=== PATIENT | male | born 1950 | race Caucasian/White ===

== ENCOUNTER 2019-03-29 08:16 | Outpatient (CLI) | payer MEDICARE ==
[2019-03-29 09:30] LABS: BASOPHILS # (AUTO) 0.02 x10^3/uL (0-0.1); BASOPHILS % (AUTO) 0 % (0-1); EOSINOPHILS # (AUTO) 0.31 x10^3/uL (0-0.4); EOSINOPHILS % (AUTO) 5 % (1-7); LYMPHOCYTES # (AUTO) 2.61 x10^3/uL (1-3.4); LYMPHOCYTES % (AUTO) 41 % (22-44); MD NO; MEAN CORPUSCULAR HEMOGLOBIN 32.9 pg (27.5-34.5); MEAN CORPUSCULAR HGB CONC 33.3 g/dL (33.2-36.2); MEAN CORPUSCULAR VOLUME 98.8 fL (81-97); MEAN PLATELET VOLUME 9.4 fL (7.4-10.4); MONOCYTES # (AUTO) 0.66 x10^3/uL (0.2-0.8); MONOCYTES % (AUTO) 10 % (2-9); NEUTROPHILS # (AUTO) 2.84 x10^3/uL (1.8-6.8); NEUTROPHILS % (AUTO) 44 % (42-75); PLATELET COUNT 166 x10^3/uL (130-400); RED BLOOD COUNT 4.41 x10^6/uL (4.38-5.82); RED CELL DISTRIBUTION WIDTH 13.9 % (9.4-14.8)
[2019-03-29 09:37] LABS: INTERNATIONAL NORMALIZED RATIO 1.07 (0.93-1.1); PROTHROMBIN TIME 11.2 Seconds (9.6-11.5)
[2019-03-29 09:37] LABS: MICROSCOPIC NOT IND
[2019-03-29 09:52] LABS: ANION GAP 4 mmol/L (5-15); CALCIUM 9.4 mg/dL (8.5-10.1); CHLORIDE 109 mmol/L (98-107); CREATININE 1.05 mg/dL (0.7-1.3)
[2019-03-29 10:11] LABS: HEMOGLOBIN A1C 5.6 % (4.2-6.3)
[2019-03-30] MEDS ORDERED: ACET1CAP PO (08:27)
[2019-03-30] MEDS ORDERED: UBID100C24 PO (08:27)
[2019-03-30] MEDS ORDERED: GLUC1CAP48 PO (08:27)
[2019-03-30] MEDS ORDERED: MULT1TAB60 PO (08:27)
[2019-03-30] MEDS ORDERED: OMEG-89 PO (08:27)
[2019-03-30] MEDS ORDERED: TURM500C4 PO (08:27)
[2019-03-30] MEDS ORDERED: ATOR20TA37 PO (08:27)
== END 2019-03-29 23:59 | disposition home or self-care (01) ==
LOC: STAR 08:16
PROVIDERS: ATTEND Student in an Organized Health Care Education/Training Program
DX: Z01.818 Encounter for other preprocedural examination (principal); N40.0 Benign prostatic hyperplasia without lower urinary tract symptoms; N21.0 Calculus in bladder; R79.89 Other specified abnormal findings of blood chemistry; R79.1 Abnormal coagulation profile
CPT/HCPCS: 36415; 71046; 80048; 81003; 83036; 85025; 85610; 85730; 87086; 93005

== ENCOUNTER 2019-04-15 05:35 | Inpatient (IN) | payer MEDICARE ==
[~2019-04-15] VITALS: Ht 185.4 cm; Wt 82.7 kg
[~2019-04-15 05:35] MED LIST: ACET1CAP PO; ATOR20TA37 PO; GLUC1CAP48 PO; MULT1TAB60 PO; OMEG-89 PO; TURM500C4 PO; UBID100C24 PO
[2019-04-15] MEDS ORDERED: LACTATED RINGERS 1,000 ML IV SCH (06:17)
[2019-04-15 06:20] VITALS: BP 112/77
[2019-04-15] MEDS ORDERED: THROMBIN 5,000 UNIT VIAL TP ONE (07:12)
[2019-04-15] MEDS ORDERED: BUPIVACAINE/EPI 0.5% 1:200K ONE (07:12)
[2019-04-15] MEDS ORDERED: BUPIVACAINE/PF 0.25% ONE (07:12)
[2019-04-15] MEDS ORDERED: EPINEPHRINE 1 MG/ML, 1ML ONE (07:12)
[2019-04-15] MEDS ORDERED: FENTANYL PF 250 MCG/5ML ONE (07:36)
[2019-04-15] MEDS ORDERED: MIDAZOLAM 1 MG/ML, 2ML ONE (07:36)
[2019-04-15] MEDS ORDERED: EPHEDRINE 50 MG/ML, 1ML ONE (07:43)
[2019-04-15] MEDS ORDERED: PHENYLEPHRINE 10 MG/ML ONE (07:43)
[2019-04-15] MEDS ORDERED: hydrALAzine 20 MG/ML, 1ML IV PRN (09:00)
[2019-04-15] MEDS ORDERED: ACETAMINOPHEN 325 MG TABLET PO PRN (09:00)
[2019-04-15] MEDS ORDERED: LABETALOL 5MG/ML, 20ML IV PRN (09:00)
[2019-04-15] MEDS ORDERED: OXYcodone 5 MG/5 ML ORAL.SOL UDC PO PRN ×2 (09:00→12:00)
[2019-04-15] MEDS ORDERED: KETOROLAC 30 MG/1 ML IV PRN (09:00)
[2019-04-15] MEDS ORDERED: ALBUTEROL SULFATE 2.5 MG/3 ML NPPB PRN (09:00)
[2019-04-15] MEDS ORDERED: DIAZEPAM 5 MG/ML, 2ML IVPush PRN (09:00)
[2019-04-15] MEDS ORDERED: MEPERIDINE/PF 25MG/0.5ML IVPush PRN (09:00)
[2019-04-15] MEDS ORDERED: PROMETHAZINE 25 MG/ML, 1ML IV PRN (09:00)
[2019-04-15] MEDS ORDERED: OPIUM/BELLADONNA SUPP.RECT 16.2-60 MG ONE (10:30)
[2019-04-15] MEDS ORDERED: NEOSTIGMINE 1 MG/ML, 10ML ONE (10:47)
[2019-04-15] MEDS ORDERED: GLYCOPYRROLATE 0.2MG/1ML, 5ML ONE (10:47)
[2019-04-15] MEDS ORDERED: SUCCINYLCHOLINE 20 MG/ML, 10ML ONE (10:47)
[2019-04-15] MEDS ORDERED: PROPOFOL 10 MG/ML, 20ML ONE (10:47)
[2019-04-15] MEDS ORDERED: CEFAZOLIN 1,000 MG ONE (10:47)
[2019-04-15] MEDS ORDERED: DEXAMETHASONE 4 MG/ML, 1ML ONE (10:47)
[2019-04-15] MEDS ORDERED: ROCURONIUM 10MG/ML,5ML ONE (10:47)
[2019-04-15] MEDS ORDERED: ONDANSETRON 2MG/ML, 2ML ONE (10:47)
[2019-04-15] MEDS ORDERED: ONDANSETRON 2MG/ML, 2ML IV PRN (12:00)
[2019-04-15] MEDS ORDERED: HYDROmorphone 1 MG/ML, 1ML INJ IV PRN (12:00)
[2019-04-15] MEDS ORDERED: OPIUM/BELLADONNA SUPP.RECT 16.2-30 MG PR PRN (12:00)
[2019-04-15] MEDS ORDERED: FENTANYL PF 100 MCG/2ML ONE (12:03)
[2019-04-15] MEDS ORDERED: OXYcodone 5 MG/5 ML ORAL.SOL UDC ONE (12:04)
[2019-04-15] MEDS: FENTANYL PF 100 MCG/2ML IV PRN ×2 (12:08→12:26)
[2019-04-15] MEDS ORDERED: HYDROmorphone 2 MG/ML, 1ML ONE (12:13)
[2019-04-15] MEDS: HYDROmorphone 2 MG/ML, 1ML IVPush PRN ×3 (12:15→12:34)
[2019-04-15] MEDS ORDERED: MEPERIDINE/PF 25MG/ML,1ML ONE (12:40)
[2019-04-15 14:00] VITALS: BP 134/83
[2019-04-15] MEDS: ACETAMINOPHEN 325 MG TABLET PO SCH ×2 (14:22→18:00)
[2019-04-15 14:46] LABS: ALBUMIN 3.8 g/dL (3.4-5.0); ANION GAP 4 mmol/L (5-15); CALCIUM 8.7 mg/dL (8.5-10.1); CHLORIDE 110 mmol/L (98-107); CREATININE 1.09 mg/dL (0.7-1.3)
[2019-04-15] MEDS: HEPARIN 5,000 UNITS/ML, 1ML SQ SCH (16:03)
[2019-04-15 19:15] VITALS: BP 86/57
[2019-04-15] MEDS ORDERED: SODIUM CHLORIDE 0.9% 1,000ML IVBOLUS ONE (20:30)
[2019-04-15 21:57] VITALS: BP 86/60
[2019-04-15 22:45] VITALS: BP 75/42
[2019-04-16] MEDS: ACETAMINOPHEN 325 MG TABLET PO SCH ×5 (01:22→23:53)
[2019-04-16] MEDS: SODIUM CHLORIDE 0.9% 1,000 ML IV SCH ×3 (01:23→19:21)
[2019-04-16 01:58] VITALS: BP 84/59
[2019-04-16] MEDS: HEPARIN 5,000 UNITS/ML, 1ML SQ SCH ×4 (06:10→21:53)
[2019-04-16 06:26] LABS: BASOPHILS % (AUTO) 0 % (0-1); EOSINOPHILS % (AUTO) 0 % (1-7); LYMPHOCYTES # (AUTO) 1.01 x10^3/uL (1-3.4); LYMPHOCYTES % (AUTO) 10 % (22-44); MD NO; MEAN CORPUSCULAR HEMOGLOBIN 32.4 pg (27.5-34.5); MEAN CORPUSCULAR HGB CONC 32.3 g/dL (33.2-36.2); MEAN CORPUSCULAR VOLUME 100.5 fL (81-97); MONOCYTES # (AUTO) 1.03 x10^3/uL (0.2-0.8); MONOCYTES % (AUTO) 11 % (2-9); NEUTROPHILS # (AUTO) 7.82 x10^3/uL (1.8-6.8); NEUTROPHILS % (AUTO) 79 % (42-75); PLATELET COUNT 153 x10^3/uL (130-400); RED BLOOD COUNT 3.09 x10^6/uL (4.38-5.82); RED CELL DISTRIBUTION WIDTH 13.5 % (9.4-14.8)
[2019-04-16 06:29] LABS: ANION GAP 8 mmol/L (5-15); CALCIUM 8.5 mg/dL (8.5-10.1); CHLORIDE 108 mmol/L (98-107); CREATININE 1.62 mg/dL (0.7-1.3)
[2019-04-16 06:42] VITALS: BP 85/48
[2019-04-16] MEDS: HYDROmorphone 2 MG/ML, 1ML IV PRN (06:45)
[2019-04-16] MEDS ORDERED: SIMETHICONE 80 MG CHEW TAB PO ONE (07:00)
[2019-04-16] MEDS ORDERED: LORazepam 2 MG/ML, 1ML IVPush PRN ×2 (07:00→08:30)
[2019-04-16] MEDS: POLYETHYLENE GLYCOL 17 GM PACKET PO SCH (08:00)
[2019-04-16] MEDS ORDERED: MIDAZOLAM 1 MG/ML, 2ML ONE (08:09)
[2019-04-16] MEDS ORDERED: FENTANYL PF 100 MCG/2ML ONE (08:09)
[2019-04-16] MEDS ORDERED: LIDOCAINE-MPF 2% ,5ML ONE (08:10)
[2019-04-16] MEDS ORDERED: SUCCINYLCHOLINE 20 MG/ML, 10ML ONE (08:10)
[2019-04-16] MEDS ORDERED: ROCURONIUM 10MG/ML,5ML ONE (08:11)
[2019-04-16] MEDS ORDERED: OXYcodone 5 MG/5 ML ORAL.SOL UDC PO PRN (08:30)
[2019-04-16] MEDS ORDERED: MEPERIDINE/PF 25MG/0.5ML IVPush PRN (08:30)
[2019-04-16] MEDS ORDERED: FENTANYL PF 100 MCG/2ML IV PRN (08:30)
[2019-04-16] MEDS ORDERED: ALBUTEROL SULFATE 2.5 MG/3 ML NPPB PRN (08:30)
[2019-04-16] MEDS ORDERED: HYDROmorphone 2 MG/ML, 1ML IVPush PRN (08:30)
[2019-04-16] MEDS ORDERED: hydrALAzine 20 MG/ML, 1ML IV PRN (08:30)
[2019-04-16] MEDS ORDERED: EPHEDRINE 50 MG/ML, 1ML IVPush PRN (08:30)
[2019-04-16] MEDS ORDERED: ONDANSETRON 2MG/ML, 2ML IV PRN (08:30)
[2019-04-16] MEDS ORDERED: BUPIVACAINE/PF 0.5% ONE (08:44)
[2019-04-16] MEDS ORDERED: NEOSTIGMINE 1 MG/ML, 10ML ONE (09:00)
[2019-04-16] MEDS ORDERED: PROPOFOL 10 MG/ML, 20ML ONE (09:00)
[2019-04-16] MEDS ORDERED: CEFAZOLIN 1,000 MG ONE (09:00)
[2019-04-16] MEDS ORDERED: GLYCOPYRROLATE 0.2MG/1ML, 5ML ONE (09:00)
[2019-04-16] MEDS ORDERED: PHENYLEPHRINE 10 MG/ML ONE (09:00)
[2019-04-16] MEDS ORDERED: POLYETHYLENE GLYCOL 17 GM PACKET PO SCH (09:00)
[2019-04-16] MEDS ORDERED: ONDANSETRON 2MG/ML, 2ML ONE (09:59)
[2019-04-16 13:05] VITALS: BP 116/79
[2019-04-16] MEDS: SIMETHICONE 80 MG CHEW TAB PO PRN ×2 (17:27→21:48)
[2019-04-16 18:39] VITALS: BP 112/65
[2019-04-17 01:38] VITALS: BP 114/66
[2019-04-17] MEDS: SODIUM CHLORIDE 0.9% 1,000 ML IV SCH ×2 (02:40→20:38)
[2019-04-17 05:27] LABS: MEAN CORPUSCULAR HEMOGLOBIN 32.6 pg (27.5-34.5); MEAN CORPUSCULAR HGB CONC 32.8 g/dL (33.2-36.2); MEAN CORPUSCULAR VOLUME 99.3 fL (81-97); MEAN PLATELET VOLUME 9.4 fL (7.4-10.4); PLATELET COUNT 111 x10^3/uL (130-400); RED BLOOD COUNT 2.21 x10^6/uL (4.38-5.82); RED CELL DISTRIBUTION WIDTH 13.6 % (9.4-14.8)
[2019-04-17 05:37] LABS: ANION GAP 3 mmol/L (5-15); CALCIUM 8.1 mg/dL (8.5-10.1); CHLORIDE 111 mmol/L (98-107); CREATININE 0.99 mg/dL (0.7-1.3)
[2019-04-17] MEDS ORDERED: FUROSEMIDE 20 MG/2 ML ONE (05:49)
[2019-04-17] MEDS: ACETAMINOPHEN 325 MG TABLET PO SCH ×4 (05:51→22:44)
[2019-04-17] MEDS ORDERED: FUROSEMIDE 20 MG/2 ML IV ONE (06:00)
[2019-04-17 06:45] LABS: BASOPHILS # (AUTO) 0.02 x10^3/uL (0-0.1); BASOPHILS % (AUTO) 0 % (0-1); EOSINOPHILS # (AUTO) 0.01 x10^3/uL (0-0.4); EOSINOPHILS % (AUTO) 0 % (1-7); LYMPHOCYTES # (AUTO) 1.51 x10^3/uL (1-3.4); LYMPHOCYTES % (AUTO) 23 % (22-44); MD SCAN; MONOCYTES # (AUTO) 0.79 x10^3/uL (0.2-0.8); MONOCYTES % (AUTO) 12 % (2-9); NEUTROPHILS % (AUTO) 64 % (42-75)
[2019-04-17] MEDS: HEPARIN 5,000 UNITS/ML, 1ML SQ SCH ×3 (07:35→22:44)
[2019-04-17] MEDS: POLYETHYLENE GLYCOL 17 GM PACKET PO SCH (08:17)
[2019-04-17] MEDS: SIMETHICONE 80 MG CHEW TAB PO PRN ×5 (08:17→20:40)
[2019-04-17 08:38] VITALS: BP 96/56
[2019-04-17 09:51] LABS: ANION GAP 3 mmol/L (5-15); CALCIUM 8.2 mg/dL (8.5-10.1); CHLORIDE 108 mmol/L (98-107); CREATININE 1.08 mg/dL (0.7-1.3)
[2019-04-17 12:41] VITALS: BP 110/65
[2019-04-17 18:28] VITALS: BP 118/67
[2019-04-18 01:11] VITALS: BP 123/74
[2019-04-18] MEDS: ACETAMINOPHEN 325 MG TABLET PO SCH ×3 (04:57→18:05)
[2019-04-18] MEDS: SODIUM CHLORIDE 0.9% 1,000 ML IV SCH (05:00)
[2019-04-18] MEDS ORDERED: BISACODYL 10 MG SUPP PR PRN (05:30)
[2019-04-18 05:39] LABS: ANION GAP 8 mmol/L (5-15); CALCIUM 8.4 mg/dL (8.5-10.1); CHLORIDE 109 mmol/L (98-107); CREATININE 0.93 mg/dL (0.7-1.3)
[2019-04-18] MEDS: HEPARIN 5,000 UNITS/ML, 1ML SQ SCH ×2 (07:28→15:23)
[2019-04-18 07:53] VITALS: BP 124/63
[2019-04-18] MEDS: SIMETHICONE 80 MG CHEW TAB PO PRN ×4 (08:14→17:31)
[2019-04-18] MEDS: HYDROmorphone 2 MG/ML, 1ML IV PRN (08:19)
[2019-04-18] MEDS ORDERED: OPIUM/BELLADONNA SUPP.RECT 16.2-60 MG PR PRN (10:30)
[2019-04-18] MEDS ORDERED: HYDROmorphone 2 MG/ML, 1ML IV PRN (10:30)
[2019-04-18 13:32] VITALS: BP 106/64
[2019-04-18] MEDS: POLYETHYLENE GLYCOL 17 GM PACKET PO SCH (15:25)
[2019-04-18 20:26] VITALS: BP 104/68
[2019-04-18] MEDS: SODIUM CHLORIDE FLUSH 10ML SYR IVF SCH (21:00)
[2019-04-19] VITALS (7 sets, daily range): BP systolic 106–132; BP diastolic 66–78
[2019-04-19] MEDS: SIMETHICONE 80 MG CHEW TAB PO PRN ×6 (03:30→22:30)
[2019-04-19] MEDS: ACETAMINOPHEN 325 MG TABLET PO SCH ×5 (03:30→22:28)
[2019-04-19 05:24] LABS: MEAN CORPUSCULAR HEMOGLOBIN 33.8 pg (27.5-34.5); MEAN CORPUSCULAR HGB CONC 33.7 g/dL (33.2-36.2); MEAN CORPUSCULAR VOLUME 100.2 fL (81-97); MEAN PLATELET VOLUME 9.2 fL (7.4-10.4); PLATELET COUNT 133 x10^3/uL (130-400); RED BLOOD COUNT 2.06 x10^6/uL (4.38-5.82); RED CELL DISTRIBUTION WIDTH 13.2 % (9.4-14.8)
[2019-04-19 05:31] LABS: ANION GAP 5 mmol/L (5-15); CALCIUM 8.7 mg/dL (8.5-10.1); CHLORIDE 108 mmol/L (98-107); CREATININE 0.85 mg/dL (0.7-1.3)
[2019-04-19 06:01] LABS: BASOPHILS % (AUTO) 0 % (0-1); EOSINOPHILS # (AUTO) 0.18 x10^3/uL (0-0.4); EOSINOPHILS % (AUTO) 4 % (1-7); LYMPHOCYTES # (AUTO) 0.98 x10^3/uL (1-3.4); LYMPHOCYTES % (AUTO) 18 % (22-44); MONOCYTES # (AUTO) 0.61 x10^3/uL (0.2-0.8); MONOCYTES % (AUTO) 11 % (2-9); NEUTROPHILS # (AUTO) 3.53 x10^3/uL (1.8-6.8); NEUTROPHILS % (AUTO) 67 % (42-75)
[2019-04-19 06:07] LABS: MD SCAN
[2019-04-19] MEDS: POLYETHYLENE GLYCOL 17 GM PACKET PO SCH (08:24)
[2019-04-19] MEDS: SODIUM CHLORIDE FLUSH 10ML SYR IVF SCH ×2 (08:25→21:00)
[2019-04-19] MEDS: HEPARIN 5,000 UNITS/ML, 1ML SQ SCH ×4 (08:25→23:23)
[2019-04-20 03:30] VITALS: BP 110/58
[2019-04-20] MEDS: ACETAMINOPHEN 325 MG TABLET PO SCH ×2 (04:56→10:08)
[2019-04-20] MEDS: SIMETHICONE 80 MG CHEW TAB PO PRN ×2 (04:56→10:13)
[2019-04-20 05:25] LABS: ANION GAP 6 mmol/L (5-15); CALCIUM 8.6 mg/dL (8.5-10.1); CHLORIDE 110 mmol/L (98-107)
[2019-04-20 05:26] LABS: CREATININE 0.87 mg/dL (0.7-1.3)
[2019-04-20 08:05] VITALS: BP 120/78
[2019-04-20] MEDS ORDERED: OXYC5CAP2 PO (09:37)
[2019-04-20] MEDS ORDERED: POLY17PO5 PO (09:39)
[2019-04-20] MEDS ORDERED: DOCU-131 PO (09:42)
[2019-04-20] MEDS ORDERED: OXYB10TA PO (09:43)
[2019-04-20] MEDS ORDERED: CIPR500T3 PO (09:44)
[2019-04-20] MEDS: POLYETHYLENE GLYCOL 17 GM PACKET PO SCH (10:08)
[2019-04-20] MEDS: HEPARIN 5,000 UNITS/ML, 1ML SQ SCH (10:08)
[2019-04-20] MEDS: SODIUM CHLORIDE FLUSH 10ML SYR IVF SCH (10:08)
[2019-04-20 12:46] LABS: ANION GAP 6 mmol/L (5-15); CALCIUM 9.1 mg/dL (8.5-10.1); CHLORIDE 106 mmol/L (98-107); CREATININE 0.98 mg/dL (0.7-1.3)
[2019-04-20 14:22] VITALS: BP 127/78
== END 2019-04-20 17:10 | disposition home or self-care (01) | DRG 717 ==
LOC: OUT 05:35 → 4NOR 13:39 → OUT 13:47 → OBSVTOIN 04-16 15:29 → DCLOUNGE 04-20 16:57
PROVIDERS: ADMIT Student in an Organized Health Care Education/Training Program; ATTEND Student in an Organized Health Care Education/Training Program
PROC: 0VB04ZZ Excision of Prostate, Percutaneous Endoscopic Approach (ICD-10-PCS; 2019-04-15)
PROC: 8E0W4CZ Robotic Assisted Procedure of Trunk Region, Percutaneous Endoscopic Approach (ICD-10-PCS; 2019-04-15)
PROC: 0T7D8ZZ Dilation of Urethra, Via Natural or Artificial Opening Endoscopic (ICD-10-PCS; 2019-04-15)
PROC: 0TCB4ZZ Extirpation of Matter from Bladder, Percutaneous Endoscopic Approach (ICD-10-PCS; 2019-04-15 07:30)
PROC: 0WCG4ZZ Extirpation of Matter from Peritoneal Cavity, Percutaneous Endoscopic Approach (ICD-10-PCS; 2019-04-16)
PROC: 03HY32Z Insertion of Monitoring Device into Upper Artery, Percutaneous Approach (ICD-10-PCS; 2019-04-16)
PROC: 0W3J4ZZ Control Bleeding in Pelvic Cavity, Percutaneous Endoscopic Approach (ICD-10-PCS; principal; 2019-04-16 08:00)
PROC: 30233N1 Transfusion of Nonautologous Red Blood Cells into Peripheral Vein, Percutaneous Approach (ICD-10-PCS; 2019-04-19)
DX: N40.1 Benign prostatic hyperplasia with lower urinary tract symptoms (principal); R71.0 Precipitous drop in hematocrit; K43.9 Ventral hernia without obstruction or gangrene; N32.3 Diverticulum of bladder; N21.0 Calculus in bladder; K42.9 Umbilical hernia without obstruction or gangrene; N35.919 Unspecified urethral stricture, male, unspecified site
CPT/HCPCS: 36415; 80048; 82040; 82360; 82570; 85014; 85018; 85025; 86850; 86900; 86923; 88300; 88309; 93005; C1729; G0378; J0171; J0690; J1100; J1170; J1644; J2175; J2250; J2405; J2704; J2710; J3010; J3490; C1760; J0330; J1940; J2060; J2370; J7030; J7120; P9016